=== PATIENT | female | born 1980 | race Caucasian/White ===

== ENCOUNTER → 2018-01-09 11:46 | Outpatient (CLI) | payer BC, SELFPAY ==
--- NOTE | 2018-01-09 | DI.MG.S_ITS ---
BILATERAL DIGITAL SCREENING MAMMOGRAM 3D/2D WITH CAD: 01/09/2018 CLINICAL: Routine screening. Family history of breast cancer. Comparison is made to exams dated: 11/30/2016 mammogram, 01/05/2015 mammogram, and 10/19/2013 mammogram - [facility]. There are scattered fibroglandular elements in both breasts. Current study was also evaluated with a Computer Aided Detection (CAD) system. No significant masses, calcifications, or other findings are seen in either breast. There has been no significant interval change. IMPRESSION: NEGATIVE There is no mammographic evidence of malignancy. A 1 year screening mammogram is recommended. This exam was interpreted at Station ID: [id number]. NOTE: For mammograms, a report in lay terms will be sent to the patient. Approximately 15% of breast malignancies will not be visualized mammographically. In the management of a palpable breast mass, a negative mammogram must not discourage biopsy of a clinically suspicious lesion. Electronically Signed By: Antonio salazar/marco a:01/09/2018 13:07:15 letter sent: Normal Exam ACR BI-RADS Category 1: Negative 3341F
== END ==
PROVIDERS: Family Provider Family Medicine; PCP Family Medicine; Visit Provider Family Medicine
DX: Z12.31 Encounter for screening mammogram for malignant neoplasm of breast (principal); Z80.3 Family history of malignant neoplasm of breast
CPT/HCPCS: 77063; 77067

== ENCOUNTER → 2018-11-19 09:05 | Outpatient (CLI) | payer SELFPAY ==
[2018-11-19 09:54] LABS: Add Manual Diff / Slide Review NO; Basophils Absolute Auto 0 /uL (0-100); Basophils Percent Auto 0.5 % (0-2); Eosinophils Absolute Auto 200 /uL (0-450); Eosinophils Percent Auto 4.4 % (2-4); Hematocrit 38.5 % (36-46); Hemoglobin 13.1 g/dL (12.0-16.0); Lymphocytes Absolute Auto 1600 /uL (1100-4500); Lymphocytes Percent Auto 35.3 % (25-40); Mean Corpuscular HGB Conc 34.1 % (30-36); Mean Corpuscular Hemoglobin 31.1 PG (26-34); Mean Corpuscular Volume 91.2 fL (80-100); Monocytes Absolute Auto 400 /uL (0-900); Monocytes Percent Auto 7.9 % (3-14); Neutrophils Absolute Auto 2400 /uL (1500-7000); Neutrophils Percent Auto 51.9 % (50-75); Platelet Count 239 X10^3/uL (150-400); Red Blood Cell Count 4.22 X10^6/uL (4.0-5.2); Red Cell Distribution Width 12.3 % (11.6-14.8); White Blood Cell Count 4.6 X10^3/uL (4.5-11.0)
[2018-11-19 10:16] LABS: Alanine Aminotransferase 30 IU/L (9-52); Albumin 4.5 g/dL (3.5-5.0); Albumin Globulin Ratio 1.4 (1.0-2.8); Alkaline Phosphatase 71 U/L (38-126); Aspartate Aminotransferase 21 IU/L (14-36); BUN Creatinine Ratio 12.9 (6-22); Bilirubin Total 0.7 mg/dL (0.2-1.3); Blood Urea Nitrogen 9 mg/dL (7-17); Calcium 9.3 mg/dL (8.4-10.2); Carbon Dioxide 27 mmol/L (22-32); Chloride 104 mmol/L (98-107); Cholesterol 174 mg/dL (140-199); Estimated Glomerular Filt Rate > 60.0 mL/min (>60); Globulin 3.3 g/dL (1.7-4.1); Glucose 88 mg/dL (70-100); HDL Cholesterol 47 mg/dL (40-60); HEMOLYSIS < 15 (0-50); LDL Cholesterol Calculated 119 mg/dL (<100); Potassium 4.1 mmol/L (3.4-5.1); Sodium 140 mmol/L (137-145); Total Protein 7.8 g/dL (6.3-8.2); Triglycerides 40 mg/dL (35-150)
== END ==
PROVIDERS: Family Provider Family Medicine; PCP Family Medicine; Visit Provider Family Medicine
DX: Z00.00 Encounter for general adult medical examination without abnormal findings (principal)
CPT/HCPCS: 36415; 80053; 80061; 84443; 85025

== ENCOUNTER → 2019-01-09 15:24 | Outpatient (CLI) | payer SELFPAY ==
--- NOTE | 2019-01-09 | DI.MG.S_ITS ---
BILATERAL DIGITAL SCREENING MAMMOGRAM 3D/2D WITH CAD: 01/09/2019 CLINICAL: Routine screening. Family history of breast cancer. Comparison is made to exams dated: 01/09/2018 mammogram, 11/30/2016 mammogram, and 01/05/2015 mammogram - [facility]. There are scattered fibroglandular elements in both breasts. Current study was also evaluated with a Computer Aided Detection (CAD) system. No significant masses, calcifications, or other findings are seen in either breast. There has been no significant interval change. IMPRESSION: NEGATIVE There is no mammographic evidence of malignancy. A 1 year screening mammogram is recommended. This exam was interpreted at Station ID: [id number]. NOTE: For mammograms, a report in lay terms will be sent to the patient. Approximately 15% of breast malignancies will not be visualized mammographically. In the management of a palpable breast mass, a negative mammogram must not discourage biopsy of a clinically suspicious lesion. Electronically Signed By: Elver centeno/marco a:01/09/2019 16:48:45 letter sent: Normal Exam ACR BI-RADS Category 1: Negative 3341F
== END ==
PROVIDERS: Family Provider Family Medicine; PCP Family Medicine; Visit Provider Family Medicine
DX: Z12.31 Encounter for screening mammogram for malignant neoplasm of breast (principal); Z80.3 Family history of malignant neoplasm of breast
CPT/HCPCS: 77063; 77067

== ENCOUNTER 2020-11-15 12:00 | Emergency (ER) | payer OTHER, SELFPAY ==
[2020-11-15] VITALS (15 sets, daily range): BP systolic 116–174; BP diastolic 69–90; PULSE 68–95; RESP 16; TEMP 36; O2SAT 99–100; BMI 26.6
--- NOTE | 2020-11-15 12:17 | DI.RAD.S_ITS ---
PROCEDURE: XR CHEST 1V INDICATIONS: sob TECHNIQUE: One view of the chest was acquired. COMPARISON: None. FINDINGS: Surgical changes and devices: None. Lungs and pleura: Lungs are clear. No pleural effusions or pneumothorax. Mediastinum: Mediastinal contours appear normal. Heart size is normal. Bones and chest wall: No suspicious bony lesions. Overlying soft tissues appear unremarkable. IMPRESSION: Normal for age, source of current shortness of breath symptoms is not seen. Dictated by: Luis Castillo M.D. on 11/15/2020 at 12:42 Approved by: Luis Castillo M.D. on 11/15/2020 at 12:42
[2020-11-15 12:29] LABS: Add Manual Diff / Slide Review NO; Basophils Absolute Auto 100 /uL (0-100); Basophils Percent Auto 0.7 % (0-2); Eosinophils Absolute Auto 200 /uL (0-450); Eosinophils Percent Auto 2.5 % (2-4); Hematocrit 42.5 % (36-46); Hemoglobin 14.2 g/dL (12.0-16.0); Lymphocytes Absolute Auto 2000 /uL (1100-4500); Lymphocytes Percent Auto 27.2 % (25-40); Mean Corpuscular HGB Conc 33.5 % (30-36); Mean Corpuscular Hemoglobin 30.8 PG (26-34); Mean Corpuscular Volume 92.1 fL (80-100); Monocytes Absolute Auto 600 /uL (0-900); Monocytes Percent Auto 7.4 % (3-14); Neutrophils Absolute Auto 4600 /uL (1500-7000); Neutrophils Percent Auto 62.2 % (50-75); Platelet Count 288 X10^3/uL (150-400); Red Blood Cell Count 4.61 X10^6/uL (4.0-5.2); Red Cell Distribution Width 12.5 % (11.6-14.8); White Blood Cell Count 7.5 X10^3/uL (4.5-11.0)
[2020-11-15 12:33] LABS: Potassium 3.7 mmol/L (3.4-5.1)
[2020-11-15 12:34] LABS: Alanine Aminotransferase 21 IU/L (<35); Albumin 4.7 g/dL (3.5-5.0); Albumin Globulin Ratio 1.3 (1.0-2.8); Alkaline Phosphatase 84 U/L (38-126); Aspartate Aminotransferase 25 IU/L (14-36); BUN Creatinine Ratio 9.2 (6-22); Bilirubin Total 0.7 mg/dL (0.2-1.3); Blood Urea Nitrogen 6 mg/dL (7-17); Calcium 9.4 mg/dL (8.4-10.2); Carbon Dioxide 25 mmol/L (22-32); Chloride 103 mmol/L (98-107); Estimated Glomerular Filt Rate > 60.0 mL/min (>60); Globulin 3.6 g/dL (1.7-4.1); Glucose 97 mg/dL (70-100); HEMOLYSIS 21 (0-50); Lipase 127 U/L (23-300); Sodium 140 mmol/L (137-145); Total Protein 8.3 g/dL (6.3-8.2)
--- NOTE | 2020-11-15 14:33 | ED_ITS ---
HPI - Abdominal Pain General Chief Complaint: Abdominal Pain Stated Complaint: ABD PAIN HIGH UP Time Seen by Provider: 11/15/20 14:28 Source: patient Mode of arrival: Ambulatory History of Present Illness HPI narrative: 40-year-old woman with no significant medical history aside from gluten sensitivity presents with 48 hours of increasing bandlike upper abdominal pain. She describes it is intermittently sharp and dull with a somewhat burning sensation but does not feel like heartburn per se. She states that she had a bowel movement this morning that did not influence her pain. With her gluten insensitivity she is very familiar with various types of abdominal pain in this typically affects her lower abdomen. She is not currently having any diarrhea and does not describe her typical gluten sensitivity type discomfort. She has not actually been vomiting but notes oak over the last 24 hours that the pain has been increasing to the point where she is having chills and feeling somewhat short of breath with the sharper waves of pain. It has been waking her up over the last 2 nights and has caused a decrease in appetite overall. She describes no overt fevers, chest pain, dyspnea, dysuria, flank pain and is not currently . Related Data Previous Rx's Medication Instructions Recorded pantoprazole [Protonix] 40 mg PO DAILY #14 tab 11/15/20 Allergies Allergy/AdvReac Type Severity Reaction Status Date / Time amoxicillin Allergy Severe Hives Verified 11/15/20 12:10 azithromycin Allergy Mild Hives Verified 11/15/20 12:10 sulfamethoxazole Allergy Mild Hives Verified 11/15/20 12:10 [From ] trimethoprim [From ] Allergy Mild Hives Verified 11/15/20 12:10 Penicillins Allergy Unknown Hives Verified 11/15/20 12:10 Review of Systems Review of Systems ROS Unobtainable: All systems reviewed & are unremarkable except as noted in HPI and below Patient History Medical History History of gluten sensitivity Social History Smoking Status: Unknown if ever smoked Smoking Status: Unknown if ever smoked alcohol intake frequency: 0-2 drinks per day Alcohol type: wine Substance Use Type: does not use Exam Narrative Exam Narrative: General: Healthy appearing, in no acute distress. Able to give a complete and coherent history. Well-nourished well-developed HEENT: Moist mucous membranes, normal sclera with reactive pupils, Neck: supple Respiratory: Lungs are clear to auscultation, no wheezing no rales no rhonchi. Full and symmetrical air movement Cardiac: Regular rate and rhythm no murmurs no bruits Abdomen: Soft, mild tenderness in the right upper quadrant and mid epigastrium without rebound or guarding, good bowel tones, no flank pain Skin: Warm and dry, no rashes Neurologic: Grossly neurologically intact with no obvious asymmetries or abnormalities Extremities: No trauma, well perfused Psych: Cooperative, appropriate insight and affect Initial Vital Signs Initial Vital Signs: Vital Signs Temperature 96.8 F L 11/15/20 12:07 Pulse Rate 90 11/15/20 12:07 Respiratory Rate 16 11/15/20 12:07 Blood Pressure 174/90 H 11/15/20 12:07 Pulse Oximetry 100 11/15/20 12:07 Course Orders Ordered: ED Orders 11/15/20 12:02 Complete Blood Count AUTO DIFF Stat Comprehensive Metabolic Panel Stat Lipase Stat 11/15/20 12:09 EKG-12 Lead Stat 11/15/20 12:17 XR chest 1V Stat 11/15/20 14:44 US abdomen limited Stat 11/15/20 15:12 CT abdomen pelvis w con Stat Discontinued Medications Ketorolac Tromethamine (Ketorolac 60 Mg/2 Ml Vial) 15 mg IV NOW ONE Stop: 11/15/20 15:13 Last Admin: 11/15/20 15:34 Dose: 15 mg Documented by: BEL Pantoprazole Sodium (Pantoprazole 40 Mg Vial) 40 mg IV NOW ONE Stop: 11/15/20 15:13 Last Admin: 11/15/20 15:34 Dose: 40 mg Documented by: BEL Vital Signs Vital signs: Vital Signs - 8 hr 11/15/20 12:07 Temperature 96.8 F L Pulse Rate 90 Respiratory Rate 16 Blood Pressure 174/90 H Pulse Oximetry 100 MDM - Abdominal Pain Medical Records Attestation: I reviewed the patient's medical records. Lab Data Attestation: I reviewed the patient's lab results. Result diagrams: 11/15/20 12:02 11/15/20 12:02 Labs: Lab Results 11/15/20 11/15/20 Range/Units 12:02 12:02 WBC 7.5 (4.5-11.0) X10^3/uL RBC 4.61 (4.0-5.2) X10^6/uL Hgb 14.2 (12.0-16.0) g/dL Hct 42.5 (36-46) % MCV 92.1 (80-100) fL MCH 30.8 (26-34) PG MCHC 33.5 (30-36) % RDW 12.5 (11.6-14.8) % Plt Count 288 (150-400) X10^3/uL Neut % (Auto) 62.2 (50-75) % Lymph % (Auto) 27.2 (25-40) % Brewster % (Auto) 7.4 (3-14) % Eos % (Auto) 2.5 (2-4) % Baso % (Auto) 0.7 (0-2) % Neut # (Auto) 4600 (9663-3071) /uL Lymph # (Auto) 2000 (4700-3574) /uL Brewster # (Auto) 600 (0-900) /uL Eos # (Auto) 200 (0-450) /uL Baso # (Auto) 100 (0-100) /uL Sodium 140 (137-145) mmol/L Potassium 3.7 (3.4-5.1) mmol/L Chloride 103 (98-107) mmol/L Carbon Dioxide 25 (22-32) mmol/L BUN 6 L (7-17) mg/dL Creatinine 0.65 (0.52-1.04) mg/dL Estimated GFR > 60.0 (>60) mL/min BUN/Creatinine Ratio 9.2 (6-22) Glucose 97 (70-100) mg/dL Calcium 9.4 (8.4-10.2) mg/dL Total Bilirubin 0.7 (0.2-1.3) mg/dL AST 25 (14-36) IU/L ALT 21 (<35) IU/L Alkaline Phosphatase 84 (38-126) U/L Total Protein 8.3 H (6.3-8.2) g/dL Albumin 4.7 (3.5-5.0) g/dL Globulin 3.6 (1.7-4.1) g/dL Albumin/Globulin Ratio 1.3 (1.0-2.8) Lipase 127 (23-300) U/L Point of care testing: Urine Dip Bedside Urine Glucose Negative Bedside Urine Bilirubin - Negative Bedside Urine Ketone - Negative Urine Specific Sidney 1.010 Bedside Urine Occult Blood - Negative Bedside Urine pH 6.5 Bedside Urine Protein - Negative Bedside Urine Urobilinogen - Negative Bedside Urine Nitrite - Negative Bedside Urine Leukocytes - Negative Esterase Imaging Data Chest x-ray: Radiologist's Impression: FINDINGS: Surgical changes and devices: None. Lungs and pleura: Lungs are clear. No pleural effusions or pneumothorax. Mediastinum: Mediastinal contours appear normal. Heart size is normal. Bones and chest wall: No suspicious bony lesions. Overlying soft tissues appear unremarkable. IMPRESSION: Normal for age, source of current shortness of breath symptoms is not seen. Dictated by: Luis Castillo M.D. on 11/15/2020 at 12:42 CT scan - abdomen/pelvis: Radiologist's Impression: FINDINGS: Image quality: Excellent. ABDOMEN: Lung bases: Lung bases are clear. Heart size is normal. Solid organs: Liver is normal in size and enhancement. Gallbladder is normal. Biliary system is non dilated. Pancreas enhances normally. Spleen is normal in size and enhancement. No adrenal nodules. Kidneys demonstrate normal size and enhancement, without hydronephrosis. Peritoneum and bowel: Bowel loops demonstrate normal wall thickness and caliber. No free fluid or air. Nodes and vessels: No retroperitoneal or mesenteric adenopathy by size criteria. Aorta and inferior vena cava are normal in size. Miscellaneous: No ventral hernias. PELVIS: Genitourinary: Bladder wall thickness is normal. Miscellaneous: No inguinal hernias or adenopathy. Bones: No suspicious bony lesions. No vertebral body compression fractures. IMPRESSION: No acute finding to explain abdominal pain. Dictated by: Kane Mensah M.D. on 11/15/2020 at 15:28 ECG Data Attestation: I personally reviewed and interpreted this ECG as follows: Interpretation: Sinus rhythm at a rate of 79 Normal intervals, normal axis no Acute ischemic changes MDM Narrative Medical decision making narrative: 40-year-old woman with 48-72 hours of upper abdominal bandlike abdominal pain. No fevers or vomiting. Lab work is reassuring, with no evidence of pancreatitis, diverticulitis, intra-abdominal abscess, gallstones or cholecystitis, pyelonephritis or significant constipation. Uncertain etiology for the bandlike upper abdominal pain but will place her on a proton pump inhibitor, with the assumption of gastritis or gastric ulcer development, for the next 2 weeks nice can follow-up with her primary care physician. She is safe for home discharge at this time Discharge Plan Departure Patient Disposition: Home Clinical Impression: Abdominal pain Qualifiers: Abdominal location: upper abdomen, unspecified Qualified Code(s): R10.10 - Upper abdominal pain, unspecified Gastritis Qualifiers: Gastritis type: unspecified gastritis Chronicity: acute Gastritis bleeding: without bleeding Qualified Code(s): K29.00 - Acute gastritis without bleeding Instructions: DI for Gastritis Activity Restrictions/Additional Instructions: Thank you for coming in today Your workup was very reassuring. There is no sign of life-threatening disease, gallstones or gallbladder disease, pancreatitis, masses or tumors in your abdomen, colitis, severe constipation. I suspect that the pain is coming from your stomach and likely is related to irritation in the lining of your stomach. I am going to suggest that you take 2 full weeks of Protonix. I have electronically transmitted a prescription for this to [facility] to begin tomorrow. It is okay to use Tylenol to help with the abdominal pain but please try to avoid aspirin, ibuprofen or Aleve. If you find that things are getting worse, please feel free to return to the emergency department Prescriptions: New pantoprazole [Protonix] 40 mg tablet,delayed release (DR/EC) 40 mg PO DAILY Qty: 14 RF: 1 Referrals: Mercedes Espinoza MD [Primary Care Provider] -
--- NOTE | 2020-11-15 14:44 | DI.US.S_ITS ---
PROCEDURE: US ABDOMEN LIMITED INDICATIONS: RUQ PAIN TECHNIQUE: Real-time focused scanning was performed of the abdomen, with image documentation. COMPARISON: None. FINDINGS: Normal hepatic parenchymal echogenicity, echotexture, and contour. No focal hepatic mass. No intrahepatic or extrahepatic biliary ductal dilatation. The gallbladder is normally distended without wall thickening or other acute/significant abnormality. Visualized portion of the pancreas unremarkable. IMPRESSION: Normal right upper quadrant abdominal ultrasound. Dictated by: Kane Mensah M.D. on 11/15/2020 at 15:13 Approved by: Kane Mensah M.D. on 11/15/2020 at 15:13
--- NOTE | 2020-11-15 15:12 | DI.CT.S_ITS ---
PROCEDURE: CT ABDOMEN PELVIS W CON INDICATIONS: abdominal pain, upper abdomen TECHNIQUE: After the administration of intravenous contrast, 5 mm thick sections acquired from the diaphragm to the symphysis. 5 mm coronal and sagittal reformats were acquired. For radiation dose reduction, the following was used: automated exposure control, adjustment of mA and/or kV according to patient size. COMPARISON: None. FINDINGS: Image quality: Excellent. ABDOMEN: Lung bases: Lung bases are clear. Heart size is normal. Solid organs: Liver is normal in size and enhancement. Gallbladder is normal. Biliary system is non dilated. Pancreas enhances normally. Spleen is normal in size and enhancement. No adrenal nodules. Kidneys demonstrate normal size and enhancement, without hydronephrosis. Peritoneum and bowel: Bowel loops demonstrate normal wall thickness and caliber. No free fluid or air. Nodes and vessels: No retroperitoneal or mesenteric adenopathy by size criteria. Aorta and inferior vena cava are normal in size. Miscellaneous: No ventral hernias. PELVIS: Genitourinary: Bladder wall thickness is normal. Miscellaneous: No inguinal hernias or adenopathy. Bones: No suspicious bony lesions. No vertebral body compression fractures. IMPRESSION: No acute finding to explain abdominal pain. Dictated by: Kane Mensah M.D. on 11/15/2020 at 15:28 Approved by: Kane Mensah M.D. on 11/15/2020 at 15:30
[2020-11-15] MEDS: KETOROLAC 60 MG/2 ML VIAL 15 MG IV (15:34)
[2020-11-15] MEDS: PANTOPRAZOLE 40 MG VIAL IV (15:34)
== END 2020-11-15 16:58 | disposition home or self-care (01) ==
PROVIDERS: Emergency Medicine; Emergency Provider Emergency Medicine; Family Provider Family Medicine; PCP Family Medicine
DX: K29.00 Acute gastritis without bleeding (principal); R10.10 Upper abdominal pain, unspecified
CPT/HCPCS: 36415; 71045; 74177; 76705; 80053; 81003; 83690; 85025; 93005; 96374; 96375; 99284; C9113; J1885; Q9967

== ENCOUNTER → 2020-12-16 13:51 | Outpatient (CLI) | payer OTHER, SELFPAY ==
--- NOTE | 2020-12-16 13:51 | DI.MG.S_ITS ---
BILATERAL DIGITAL SCREENING MAMMOGRAM 3D/2D WITH CAD: 12/16/2020 CLINICAL: Routine screening. Family history of breast cancer. Comparison is made to exams dated: 01/09/2019 mammogram, 01/09/2018 mammogram, and 11/30/2016 mammogram - [facility]. There are scattered fibroglandular elements in both breasts. Current study was also evaluated with a Computer Aided Detection (CAD) system. No significant masses, calcifications, or other findings are seen in either breast. There has been no significant interval change. IMPRESSION: NEGATIVE There is no mammographic evidence of malignancy. A 1 year screening mammogram is recommended. This exam was interpreted at Station ID: [id number]. NOTE: For mammograms, a report in lay terms will be sent to the patient. Approximately 15% of breast malignancies will not be visualized mammographically. In the management of a palpable breast mass, a negative mammogram must not discourage biopsy of a clinically suspicious lesion. Electronically Signed By: Kane Mensah M.D., jr/marco a:12/16/2020 16:15:25 letter sent: Normal Exam ACR BI-RADS Category 1: Negative 3341F
== END ==
PROVIDERS: Family Provider Family Medicine; PCP Family Medicine; Referring Provider Family Medicine; Visit Provider Family Medicine
DX: Z12.31 Encounter for screening mammogram for malignant neoplasm of breast (principal); Z80.3 Family history of malignant neoplasm of breast
CPT/HCPCS: 77063; 77067

== ENCOUNTER → 2022-04-10 16:03 | Outpatient (CLI) | payer SELFPAY ==
--- NOTE | 2022-04-10 | DI.MG.S_ITS ---
BILATERAL DIGITAL SCREENING MAMMOGRAM 3D/2D WITH CAD: 04/10/2022 CLINICAL: Routine screening. Family history of breast cancer. Comparison is made to exams dated: 12/16/2020 mammogram, 01/09/2019 mammogram, and 01/09/2018 mammogram - [facility]. There are scattered areas of fibroglandular density in both breasts (category b / 25%-50% glandular tissue). Current study was also evaluated with a Computer Aided Detection (CAD) system. No significant masses, calcifications, or other findings are seen in either breast. There has been no significant interval change. IMPRESSION: NEGATIVE There is no mammographic evidence of malignancy. A 1 year screening mammogram is recommended. Based on the Tyrer Cuzick model (a risk assessment model) the patient's lifetime risk is 13.7% and her 10 year risk is 1.8%. According to the ACR, ACS, and NCCN guidelines, an annual breast MRI exam along with mammogram is recommended if the patient's lifetime risk is 20% or greater. This exam was interpreted at Station ID: [id number]. NOTE: For mammograms, a report in lay terms will be sent to the patient. Approximately 15% of breast malignancies will not be visualized mammographically. In the management of a palpable breast mass, a negative mammogram must not discourage biopsy of a clinically suspicious lesion. Electronically Signed By: Crsytal kiser/marco a:04/11/2022 09:01:03 letter sent: Normal Exam ACR BI-RADS Category 1: Negative 3341F
== END ==
PROVIDERS: Family Provider Family Medicine; PCP Registered Nurse; Referring Provider Registered Nurse; Visit Provider Registered Nurse
DX: Z12.31 Encounter for screening mammogram for malignant neoplasm of breast (principal); Z80.3 Family history of malignant neoplasm of breast
CPT/HCPCS: 77063; 77067

== ENCOUNTER → 2024-03-21 08:39 | Outpatient (CLI) | payer SELFPAY ==
[2024-03-24 01:36] LABS: Creatinine, Random Urine 15.4 mg/dL (Not Estab.); Metaneph/ Creatinine Ratio 0.3 (0.0-1.0); Metanephrine, Ur 8 ug/L (Undefined); Normetanephrine, Urine 23 ug/L (Undefined)
== END ==
PROVIDERS: Family Provider Family Medicine; PCP Registered Nurse; Referring Provider Registered Nurse; Visit Provider Registered Nurse
DX: I15.9 Secondary hypertension, unspecified (principal); R21 Rash and other nonspecific skin eruption
CPT/HCPCS: 82570; 83835

== ENCOUNTER → 2025-06-04 15:45 | Outpatient (CLI) | payer SELFPAY ==
--- NOTE | 2025-06-04 15:48 | DI.MG.S_ITS ---
MM screening mammo BI: 06/04/2025. BI-RADS: 1 CLINICAL: 45-year old female for bilateral screening mammogram. Tyrer-Cuzick lifetime risk of 10.7%. Current reported family history of breast cancer: mother. PRIOR EXAMS 04/10/2022, 12/16/2020, 01/09/2019, 01/09/2018. MAMMOGRAPHY TECHNIQUE: 2D and 3D (tomosynthesis) digital mammographic views obtained, with additional images as needed for full coverage. Current study was also evaluated with a Computer Aided Detection (CAD) system. DENSITY B. There are scattered areas of fibroglandular density. MAMMOGRAPHY FINDINGS Bilateral: No suspicious mass, asymmetry, microcalcification, or other abnormality seen. IMPRESSION: * No evidence of malignancy. RECOMMENDATIONS Bilateral * Annual screening mammography. OVERALL ASSESSMENT CATEGORY BI-RADS-1: Negative. The [employer] recommends annual screening mammography beginning at age 40 for women with average risk of breast cancer. ELECTRONICALLY SIGNED: Elver Rose M.D. on 06/04/2025 at 08:55:31 PM PT Interpreting Station ID: [id number]
== END ==
LOC: MAMMO 15:47
PROVIDERS: Family Provider Family Medicine; PCP Registered Nurse; Referring Provider Registered Nurse; Visit Provider Registered Nurse
DX: Z12.31 Encounter for screening mammogram for malignant neoplasm of breast (principal); Z80.3 Family history of malignant neoplasm of breast
CPT/HCPCS: 77063; 77067